=== PATIENT | male | born 1965 | race Caucasian/White ===

== ENCOUNTER → 2016-10-07 | Outpatient (CLI) | payer OTHER ==
--- NOTE | 2016-10-08 09:56 | ECHOF ---
Referral Reason:I42.9 cardiomyopathy in other dise MEASUREMENTS -------- HEIGHT: 177.8 cm WEIGHT: 73.9 kg BP: 182/92 RVIDd: 3.3 cm (< 3.3) IVSd: 1.3 cm (0.6 - 1.1) LVIDd: 5.2 cm (3.9 - 5.3) LVPWd: 1.3 cm (0.6 - 1.1) IVSs: 1.7 cm LVIDs: 3.7 cm LVPWs: 1.7 cm LA Diam: 3.5 cm (2.7 - 3.8) LAESV Index (A-L): 32.71 ml/m Ao Diam: 3.5 cm (2.0 - 3.7) MV EXCURSION: 17.701 mm (> 18.000) MV EF SLOPE: 35 mm/s (70 - 150) EPSS: 1.6 cm MV E Marco: 0.48 m/s MV DecT: 448 ms MV A Marco: 0.83 m/s MV E/A Ratio: 0.58 FINDINGS -------- Sinus rhythm. This was a technically adequate study. The left ventricular size is normal. There is mild concentric left ventricular hypertrophy. Overall left ventricular systolic function is mild-moderately impaired with, an EF between 40 - 45 %. The right ventricle is mildly enlarged. LA is moderately dilated 34-39 ml/m2 The right atrium is normal in size. The aortic valve is trileaflet and appears structurally normal. Mild mitral annular calcification present. Trace tricuspid regurgitation present. The pulmonic valve is normal. There is no pulmonic regurgitation present. The aortic root size is normal. Normal inferior vena cava with normal inspiratory collapse consistent with estimated right atrial pressure of 5 mmHg. There is no pericardial effusion. CONCLUSIONS -------- 1. Sinus rhythm. 2. Mild mitral annular calcification present. 3. Trace tricuspid regurgitation present. 4. The pulmonic valve is normal. 5. The aortic root size is normal. 6. Normal inferior vena cava with normal inspiratory collapse consistent with estimated right atrial pressure of 5 mmHg. 7. There is no pericardial effusion. 8. This was a technically adequate study. 9. The left ventricular size is normal. 10. There is mild concentric left ventricular hypertrophy. 11. Overall left ventricular systolic function is mild-moderately impaired with, an EF between 40 - 45 %. 12. The right ventricle is mildly enlarged. 13. LA is moderately dilated 34-39 ml/m2 14. The right atrium is normal in size. 15. The aortic valve is trileaflet and appears structurally normal. LYE BOILER: Kell Kc RDCS
== END | disposition home or self-care (01) ==
LOC: RADECHMAIN 12:54
PROVIDERS: ATTEND Internal Medicine Interventional Cardiology
DX: I51.7 Cardiomegaly (principal); I42.9 Cardiomyopathy, unspecified
CPT/HCPCS: 93306

== ENCOUNTER 2018-02-07 17:09 | Observation (INO) | payer OTHER ==
[2018-02-07 19:08] LABS: Basophils # (A) 0.1 k/uL (0-0.2); Basophils % (A) 1 %; Eosinophils # (A) 0.3 k/uL (0-0.7); Eosinophils % (A) 3 %; HCT 33.5 % (39.0-53.0); HGB 11.3 gm/dL (13.0-17.5); Lymphocytes # (A) 2.6 k/uL (1.0-4.8); Lymphocytes % (A) 22 %; MCH 31.1 pg (25.0-35.0); MCHC 33.8 g/dL (31.0-37.0); MCV 92.2 fL (80.0-100.0); Mean Platelet Volume 6.6; Monocytes # (A) 0.5 k/uL (0-1.0); Monocytes % (A) 4 %; Neutrophils # (A) 8.1 k/uL (1.3-7.7); Neutrophils % (A) 69 %; Platelet Count 518 k/uL (150-450); RBC 3.64 m/uL (4.30-5.90); RDW 14.4 % (11.5-15.5); WBC 11.8 k/uL (3.8-10.6)
[2018-02-07 19:21] LABS: Creatine Kinase 44 U/L (55-170)
[2018-02-07 19:31] LABS: Albumin 3.5 g/dL (3.5-5.0); Calcium 9.5 mg/dL (8.4-10.2); Potassium 4.6 mmol/L (3.5-5.1); Total Bilirubin 0.2 mg/dL (0.2-1.3); Total Protein 6.9 g/dL (6.3-8.2)
[2018-02-07 19:34] LABS: Creatine Kinase MB 0.6 ng/mL (0.0-2.4); Troponin I <0.012 ng/mL (0.000-0.034)
[2018-02-07 19:48] LABS: Prothrombin Time 75.7 sec (9.0-12.0)
[2018-02-07 19:58] LABS: INR 8.2 (<1.2)
--- NOTE | 2018-02-07 20:00 | ED ---
General Adult HPI - General Chief complaint: Chest Pain Stated complaint: Abdormal labs Time Seen by Provider: 02/07/18 18:50 Source: patient Mode of arrival: ambulatory Limitations: no limitations - History of Present Illness Initial comments: Seth Quezada is a 52-year-old male with past medical history listed below who presents to the emergency department today for evaluation of left- sided chest pain and shortness of breath. 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 Pain is worse with inspiration or coughing. Patient also states is been feeling mildly short of breath. Patient was admitted he is a cigarette smoker. The patient denies any fevers but states that he has felt chilled. The patient saw his primary care physician today and had routine labs drawn which revealed a INR of 8.2. She denies any bleeding, he has not had any bloody noses, bleeding with brushing his teeth, hematuria or medication. Patient reports that his goal INR is 2-3 and that he has been taking his warfarin as prescribed. - Related Data Home Medications Medication Instructions Recorded Confirmed Aspirin EC [Ecotrin Low Dose] 81 mg PO DAILY 02/07/18 02/07/18 Chlorthalidone [Hygroton] 25 mg PO DAILY 02/07/18 02/07/18 Diltiazem HCl 60 mg PO TID 02/07/18 02/07/18 Losartan Potassium 100 mg PO DAILY 02/07/18 02/07/18 Mometasone/Formoterol [Dulera 200 2 puff INHALATION RT-BID 02/07/18 02/07/18 Mcg/5 Mcg Inhaler] Pantoprazole Sodium [Protonix] 20 mg PO DAILY 02/07/18 02/07/18 Sotalol [Betapace] 80 mg PO BID 02/07/18 02/07/18 Warfarin [Coumadin] 3.5 mg PO HS 02/07/18 02/07/18 Previous Rx's Medication Instructions Recorded Albuterol Inhaler [Ventolin Hfa 1 - 2 puff INHALATION RT-Q6H PRN 07/18/16 Inhaler] #1 inhaler Allergies Allergy/AdvReac Type Severity Reaction Status Date / Time No Known Allergies Allergy Verified 02/07/18 19:19 Review of Systems ROS Statement: Those systems with pertinent positive or pertinent negative responses have been documented in the HPI. ROS Other: All systems not noted in ROS Statement are negative. Constitutional: Reports: chills. Denies: fever Eyes: Denies: eye pain ENT: Denies: throat pain Respiratory: Reports: cough Cardiovascular: Reports: chest pain Endocrine: Reports: fatigue Gastrointestinal: Denies: abdominal pain, nausea, vomiting Genitourinary: Denies: urgency Musculoskeletal: Reports: back pain Skin: Denies: rash Neurological: Denies: headache Psychiatric: Denies: anxiety Hematological/Lymphatic: Reports: easy bleeding, easy bruising Past Medical History Past Medical History: Atrial Fibrillation, Dialysis, Hypertension, Renal Disease Additional Past Medical History / Comment(s): recently released from [facility] after multi-organ failure and dialysis (not currently on dialysis.) History of Any Multi-Drug Resistant Organisms: None Reported Past Surgical History: No Surgical Hx Reported Additional Past Surgical History / Comment(s): catheter removal from neck jun Past Anesthesia/Blood Transfusion Reactions: No Reported Reaction Past Psychological History: No Psychological Hx Reported Smoking Status: Current every day smoker Past Alcohol Use History: Occasional Past Drug Use History: None Reported - Past Family History Father Family Medical History: Cancer Mother Family Medical History: Diabetes Mellitus General Exam Limitations: no limitations General appearance: alert, in no apparent distress Head exam: Present: atraumatic, normocephalic Eye exam: Present: normal appearance, PERRL ENT exam: Present: normal exam Neck exam: Present: normal inspection Respiratory exam: Present: normal lung sounds bilaterally. Absent: respiratory distress Cardiovascular Exam: Present: regular rate, normal rhythm GI/Abdominal exam: Present: soft. Absent: distended Rectal exam: Present: deferred Extremities exam: Present: normal inspection. Absent: full ROM Back exam: Present: normal inspection Neurological exam: Present: alert, oriented X3 Psychiatric exam: Present: normal affect, normal mood Skin exam: Present: warm, dry Course Vital Signs 02/07/18 18:08 Temperature 98.6 F Pulse Rate 84 Respiratory 18 Rate Blood Pressure 106/67 O2 Sat by Pulse 100 Oximetry Medical Decision Making - Medical Decision Making Patient was seen and evaluated, history was obtained from the patient and review of medical record The patient with a cardiac history, intermittent left-sided chest pain as well as subjective chills and cough - vital signs reveal no Sirs criteria Cardiac workup was ordered EKG reveals a normal sinus rhythm with a rate of 71, normal axis, normal intervals, there is noted be a right bundle branch block, there are no acute ST elevations or depressions. Labs reveal a normal troponin, There is leukocytosis, with neutrophilia, mild anemia, creatinine is 1.8 and INR is elevated at 8.2 - patient is not having any active bleeding - by mouth vitamin K was ordered and repeat morning labs were ordered EKG does reveal a right middle lobe pneumonia -patient with no recent admissions to the hospital, will treat for community-acquired pneumonia Patient is a 52-year-old male, history of coronary artery disease, intermittent left-sided chest pain for greater than 10 days duration, negative troponin. Patient also has a elevated INR 8.2 and a right middle lobe pneumonia. Uncertain of previous baseline kidney function by kidney function today is 1.8. I do feel the patient requires further monitoring I will place him in the observation unit for these multiple complaints. - Lab Data Result diagrams: 02/07/18 18:57 02/07/18 18:57 Lab Results 02/07/18 02/07/18 02/07/18 Range/Units 18:57 18:57 18:57 WBC 11.8 H (3.8-10.6) k/uL RBC 3.64 L (4.30-5.90) m/uL Hgb 11.3 L (13.0-17.5) gm/dL Hct 33.5 L (39.0-53.0) % MCV 92.2 (80.0-100.0) fL MCH 31.1 (25.0-35.0) pg MCHC 33.8 (31.0-37.0) g/dL RDW 14.4 (11.5-15.5) % Plt Count 518 H (150-450) k/uL Neutrophils % 69 % Lymphocytes % 22 % Monocytes % 4 % Eosinophils % 3 % Basophils % 1 % Neutrophils # 8.1 H (1.3-7.7) k/uL Lymphocytes # 2.6 (1.0-4.8) k/uL Monocytes # 0.5 (0-1.0) k/uL Eosinophils # 0.3 (0-0.7) k/uL Basophils # 0.1 (0-0.2) k/uL PT (9.0-12.0) sec INR (<1.2) APTT (22.0-30.0) sec Sodium 139 (137-145) mmol/L Potassium 4.6 (3.5-5.1) mmol/L Chloride 106 (98-107) mmol/L Carbon Dioxide 24 (22-30) mmol/L Anion Gap 9 mmol/L BUN 31 H (9-20) mg/dL Creatinine 1.80 H (0.66-1.25) mg/dL Est GFR (CKD-EPI)AfAm 49 (>60 ml/min/1.73 sqM) Est GFR (CKD-EPI)NonAf 42 (>60 ml/min/1.73 sqM) Glucose 95 (74-99) mg/dL Calcium 9.5 (8.4-10.2) mg/dL Total Bilirubin 0.2 (0.2-1.3) mg/dL AST 21 (17-59) U/L ALT 22 (21-72) U/L Alkaline Phosphatase 72 (38-126) U/L Total Creatine Kinase 44 L (55-170) U/L CK-MB (CK-2) 0.6 (0.0-2.4) ng/mL CK-MB (CK-2) Rel Index 1.4 Troponin I <0.012 (0.000-0.034) ng/mL Total Protein 6.9 (6.3-8.2) g/dL Albumin 3.5 (3.5-5.0) g/dL 02/07/18 Range/Units 18:57 WBC (3.8-10.6) k/uL RBC (4.30-5.90) m/uL Hgb (13.0-17.5) gm/dL Hct (39.0-53.0) % MCV (80.0-100.0) fL MCH (25.0-35.0) pg MCHC (31.0-37.0) g/dL RDW (11.5-15.5) % Plt Count (150-450) k/uL Neutrophils % % Lymphocytes % % Monocytes % % Eosinophils % % Basophils % % Neutrophils # (1.3-7.7) k/uL Lymphocytes # (1.0-4.8) k/uL Monocytes # (0-1.0) k/uL Eosinophils # (0-0.7) k/uL Basophils # (0-0.2) k/uL PT 75.7 H (9.0-12.0) sec INR 8.2 H* (<1.2) APTT 53.0 H (22.0-30.0) sec Sodium (137-145) mmol/L Potassium (3.5-5.1) mmol/L Chloride (98-107) mmol/L Carbon Dioxide (22-30) mmol/L Anion Gap mmol/L BUN (9-20) mg/dL Creatinine (0.66-1.25) mg/dL Est GFR (CKD-EPI)AfAm (>60 ml/min/1.73 sqM) Est GFR (CKD-EPI)NonAf (>60 ml/min/1.73 sqM) Glucose (74-99) mg/dL Calcium (8.4-10.2) mg/dL Total Bilirubin (0.2-1.3) mg/dL AST (17-59) U/L ALT (21-72) U/L Alkaline Phosphatase (38-126) U/L Total Creatine Kinase (55-170) U/L CK-MB (CK-2) (0.0-2.4) ng/mL CK-MB (CK-2) Rel Index Troponin I (0.000-0.034) ng/mL Total Protein (6.3-8.2) g/dL Albumin (3.5-5.0) g/dL Disposition Clinical Impression: Elevated INR (international normalized ratio), Chest pain, CAP (community acquired pneumonia) Disposition: ADMITTED IP TO THIS HOSP Condition: Good Is patient prescribed a controlled substance at d/c from ED?: No Referrals: Melvin Carter MD [Primary Care Provider] - 1-2 days Decision Time: 22:39
--- NOTE | 2018-02-07 20:09 | XR ---
EXAMINATION TYPE: XR chest 2V DATE OF EXAM: 02/07/2018 COMPARISON: 07/13/2016 HISTORY: Left side chest pain TECHNIQUE: Frontal and lateral views of the chest are obtained. FINDINGS: Heart and mediastinum are normal. There is some patchy infiltrate in the right middle lobe . There is old left-sided healed rib fracture. Costophrenic angles are clear. The bony thorax shows 2 5% anterior wedging of T7. IMPRESSION: Old compression fracture of T7. There is new right middle lobe pneumonia compared to old exam. No heart failure. Heart is smaller than old exam.
[2018-02-07] MEDS ORDERED: cefTRIAXone IN SWFI 1,000 MG/10 ML SYRINGE IVP STA (22:31)
[2018-02-07] MEDS ORDERED: AZITHROMYCIN 500 MG in DEXTROSE 5% IN WATER 250 ML IVPB STA ×2 (22:31)
[2018-02-07] MEDS ORDERED: MORPHINE SULFATE 4 MG/ML SYRINGE IVP STA (22:32)
[2018-02-07] MEDS ORDERED: NALOXONE 0.4 MG/ML 1 ML VIAL IV PRN (22:39)
[2018-02-07] MEDS ORDERED: ACETAMINOPHEN TAB 325 MG TAB PO PRN (22:39)
[2018-02-07] MEDS ORDERED: PHYTONADIONE ORAL 5 MG/5 ML ORAL.SYRG PO STA (22:40)
[2018-02-07] MEDS ORDERED: LIDOCAINE 5% PATCH TOPICAL SCH (22:45)
[2018-02-07] MEDS: SODIUM CHLORIDE 0.9% 1,000 ML IV SCH (22:53)
[2018-02-08 07:15] LABS: Basophils # (A) 0.1 k/uL (0-0.2); Basophils % (A) 1 %; Eosinophils # (A) 0.3 k/uL (0-0.7); Eosinophils % (A) 4 %; HCT 30.8 % (39.0-53.0); HGB 10.3 gm/dL (13.0-17.5); Lymphocytes # (A) 2.1 k/uL (1.0-4.8); Lymphocytes % (A) 23 %; MCH 31.9 pg (25.0-35.0); MCHC 33.5 g/dL (31.0-37.0); MCV 95.3 fL (80.0-100.0); Mean Platelet Volume 6.6; Monocytes # (A) 0.5 k/uL (0-1.0); Monocytes % (A) 6 %; Neutrophils # (A) 5.9 k/uL (1.3-7.7); Neutrophils % (A) 65 %; Platelet Count 444 k/uL (150-450); RBC 3.23 m/uL (4.30-5.90); RDW 14.6 % (11.5-15.5); WBC 9.1 k/uL (3.8-10.6)
[2018-02-08 07:23] LABS: INR 2.9 (<1.2); Prothrombin Time 25.8 sec (9.0-12.0)
[2018-02-08 07:50] LABS: Calcium 9.2 mg/dL (8.4-10.2); Potassium 4.8 mmol/L (3.5-5.1)
[2018-02-08] MEDS: SODIUM CHLORIDE 0.9% 1,000 ML IV SCH ×2 (08:41→18:06)
[2018-02-08] MEDS ORDERED: IPRATROPIUM-ALBUTEROL 3 ML NEB INHALATION PRN (08:41)
[2018-02-08] MEDS: SOTALOL 80 MG TAB PO SCH ×2 (08:54→21:29)
[2018-02-08] MEDS: DILTIAZEM ORAL 60 MG TAB PO SCH ×3 (08:54→21:28)
[2018-02-08] MEDS: MORPHINE SULFATE 4 MG/ML SYRINGE IVP PRN ×3 (10:55→20:18)
[2018-02-08] MEDS: cefTRIAXone IN SWFI 1,000 MG/10 ML SYRINGE IVP SCH (12:29)
[2018-02-08] MEDS: AZITHROMYCIN 500 MG TAB PO SCH (12:29)
[2018-02-08] MEDS: IPRATROPIUM-ALBUTEROL 3 ML NEB INHALATION SCH ×3 (13:12→20:24)
--- NOTE | 2018-02-08 17:00 | P.HPIM ---
History of Present Illness 52-year-old gentleman came in with complaints of pleuritic chest pain [facility] patient had left-sided pleuritic chest pain along with shortness of breath. Patient was comparing of cough with yellowish to be distress from reduction patient can use to smoke does have history of COPD. Does have history of atrial fibrillation appears to have history of DVT as well and the past patient is on Coumadin. Patient was sober therapy can Coumadin with the INR going up to around 8 without any acute bleed. Patient's INR has come down patient will be resumed on Coumadin tomorrow patient is on sotalol as well along with diltiazem, has previous ejection fraction is 40-45%. As diltiazem is not appropriate in heart failure his heart failure may have improved because of which I'm opting echo echocardiogram for now will continued diltiazem until I get the echocardiogram. Patient was also started on Rocephin and azithromycin for come in today quite pneumonia and patient had an incidental finding of compression fracture in one of the thoracic vertebrae which was chronic and old. Patient has significant pneumonic infiltrate in the right middle lobe. Review of Systems REVIEW OF SYSTEMS: CONSTITUTIONAL: No fever, no malaise, no fatigue. HEENT: No recent visual problems or hearing problems. Denied any sore throat. CARDIOVASCULAR: No orthopnea, PND, no palpitations, no syncope. PULMONARY: No shortness of breath, no cough, no hemoptysis. GASTROINTESTINAL: No diarrhea, no nausea, no vomiting, no abdominal pain. Normoactive bowel sounds. NEUROLOGICAL: No headaches, no weakness, no numbness. HEMATOLOGICAL: Denies any bleeding or petechiae. GENITOURINARY: Denies any burning micturition, frequency, or urgency. MUSCULOSKELETAL/RHEUMATOLOGICAL: Denies any joint pain, swelling, or any muscle pain. ENDOCRINE: Denies any polyuria or polydipsia. The rest of the 14-point review of systems is negative. Past Medical History Past Medical History: Atrial Fibrillation, Heart Failure, COPD, Dialysis, Deep Vein Thrombosis (DVT), Hypertension, Pneumonia, Renal Disease Additional Past Medical History / Comment(s): 2016 Pt was hospitalized for a lengthy time with multi organ failure/on life support/renal failure with hemodialysis/pt states he was never told cause of multi organ failure, past septic shock which pt states occured after multi organ failure, pneumonias. History of Any Multi-Drug Resistant Organisms: None Reported Past Surgical History: No Surgical Hx Reported Additional Past Surgical History / Comment(s): Hemodialysis catheter in neck- removed. Past Anesthesia/Blood Transfusion Reactions: No Reported Reaction Additional Past Anesthesia/Blood Transfusion Reaction / Comment(s): Pt states he has never had general anesthesia. Pt states he has never recieved blood. Smoking Status: Current every day smoker - Past Family History Father Family Medical History: Cancer Additional Family Medical History / Comment(s): Father of lung cancer at the age of 67yrs. Mother Family Medical History: Diabetes Mellitus Additional Family Medical History / Comment(s): Mother at the age of 74 yrs from "body wore out early." Medications and Allergies Home Medications Medication Instructions Recorded Confirmed Type Albuterol Inhaler [Ventolin Hfa 1 - 2 puff INHALATION RT-Q6H PRN 07/18/16 Rx Inhaler] #1 inhaler Aspirin EC [Ecotrin Low Dose] 81 mg PO DAILY 02/07/18 02/07/18 History Chlorthalidone [Hygroton] 25 mg PO DAILY 02/07/18 02/07/18 History Diltiazem HCl 60 mg PO TID 02/07/18 02/07/18 History Losartan Potassium 100 mg PO DAILY 02/07/18 02/07/18 History Mometasone/Formoterol [Dulera 200 2 puff INHALATION RT-BID 02/07/18 02/07/18 History Mcg/5 Mcg Inhaler] Pantoprazole Sodium [Protonix] 20 mg PO DAILY 02/07/18 02/07/18 History Sotalol [Betapace] 80 mg PO BID 02/07/18 02/07/18 History Warfarin [Coumadin] 3.5 mg PO HS 02/07/18 02/07/18 History Allergies Allergy/AdvReac Type Severity Reaction Status Date / Time No Known Allergies Allergy Verified 02/07/18 19:19 Physical Exam Vitals: Vital Signs Temp Pulse Pulse Resp BP BP Pulse Ox 02/08/18 16:36 80 02/08/18 15:00 97.0 F L 77 16 103/66 100 02/08/18 13:18 82 16 02/08/18 13:12 74 14 02/08/18 12:53 99.6 F 73 18 111/67 96 02/08/18 10:45 97.5 F L 74 18 115/53 97 02/08/18 06:43 76 16 116/58 98 02/08/18 06:00 64 17 103/61 94 L 02/08/18 05:00 64 16 98/57 96 02/08/18 04:00 76 17 107/67 96 02/08/18 03:00 58 L 16 105/67 98 02/08/18 02:00 60 17 98/58 97 02/08/18 01:00 64 16 96/55 97 02/08/18 00:00 70 17 93/55 96 02/07/18 23:09 53 L 17 149/64 100 02/07/18 18:08 98.6 F 84 18 106/67 100 PHYSICAL EXAMINATION: GENERAL: The patient is alert and oriented x3, not in any acute distress. Well developed, well nourished. HEENT: Pupils are round and equally reacting to light. EOMI. No scleral icterus. No conjunctival pallor. Normocephalic, atraumatic. No pharyngeal erythema. No thyromegaly. CARDIOVASCULAR: S1 and S2 present. No murmurs, rubs, or gallops. PULMONARY: Bilateral rhonchus breath sounds no wheezing was appreciated ABDOMEN: Soft, nontender, nondistended, normoactive bowel sounds. No palpable organomegaly. MUSCULOSKELETAL: No joint swelling or deformity. EXTREMITIES: No cyanosis, clubbing, or pedal edema. NEUROLOGICAL: Gross neurological examination did not reveal any focal deficits. SKIN: No rashes. Results CBC & Chem 7: 02/08/18 06:47 02/08/18 06:47 Labs: Abnormal Lab Results - Last 24 Hours (Table) 02/07/18 02/07/18 02/07/18 Range/Units 18:57 18:57 18:57 WBC 11.8 H (3.8-10.6) k/uL RBC 3.64 L (4.30-5.90) m/uL Hgb 11.3 L (13.0-17.5) gm/dL Hct 33.5 L (39.0-53.0) % Plt Count 518 H (150-450) k/uL Neutrophils # 8.1 H (1.3-7.7) k/uL PT (9.0-12.0) sec INR (<1.2) APTT (22.0-30.0) sec Chloride (98-107) mmol/L BUN 31 H (9-20) mg/dL Creatinine 1.80 H (0.66-1.25) mg/dL Glucose (74-99) mg/dL Total Creatine Kinase 44 L (55-170) U/L 02/07/18 02/08/18 02/08/18 Range/Units 18:57 06:47 06:47 WBC (3.8-10.6) k/uL RBC 3.23 L (4.30-5.90) m/uL Hgb 10.3 L (13.0-17.5) gm/dL Hct 30.8 L (39.0-53.0) % Plt Count (150-450) k/uL Neutrophils # (1.3-7.7) k/uL PT 75.7 H 25.8 H (9.0-12.0) sec INR 8.2 H* 2.9 H (<1.2) APTT 53.0 H (22.0-30.0) sec Chloride (98-107) mmol/L BUN (9-20) mg/dL Creatinine (0.66-1.25) mg/dL Glucose (74-99) mg/dL Total Creatine Kinase (55-170) U/L 02/08/18 Range/Units 06:47 WBC (3.8-10.6) k/uL RBC (4.30-5.90) m/uL Hgb (13.0-17.5) gm/dL Hct (39.0-53.0) % Plt Count (150-450) k/uL Neutrophils # (1.3-7.7) k/uL PT (9.0-12.0) sec INR (<1.2) APTT (22.0-30.0) sec Chloride 108 H (98-107) mmol/L BUN 29 H (9-20) mg/dL Creatinine 1.70 H (0.66-1.25) mg/dL Glucose 102 H (74-99) mg/dL Total Creatine Kinase (55-170) U/L Thrombosis Risk Factor Assmnt - Choose All That Apply Any of the Below Risk Factors Present?: Yes Each Factor Represents 1 point: Abnormal pulmonary function (COPD), Age 41-60 years, Serious lung disease incl. pneumonia (< 1month) Other Risk Factors: No Other congenital or acquired thrombophilia - If yes, enter type in comment: No Thrombosis Risk Factor Assessment Total Risk Factor Score: 3 Thrombosis Risk Factor Assessment Level: Moderate Risk Assessment and Plan Plan: -Possible community-acquired pneumonia mostly pneumococcal pneumonia patient is on Rocephin and azithromycin which will be continued. We will obtain sputum culture and blood cultures. -History of atrial fibrillation presently rate controlled hold off Coumadin today as well because of his suprapubic cannot yesterday continue his sotalol and Cardizem repeat echocardiogram to assess the ejection fraction which may be normal now. -Previous history of chronic systolic dysfunction patient is euvolemic at this point of time will discontinue IV fluids after a liter of fluid. -Acute renal failure prerenal azotemia mostly from sepsis, his previous creatinine was 1.1 patient may have a chronic kidney disease stage II from hypertensive nephrosclerosis continue with IV fluids for now discontinue after liters repeat basic metabolic profile tomorrow -Supratherapeutic INR presently improved and is 2.9. -History of subclavian DVT in the past my suspicion is low for PE in spite of pleuritic chest pain as patient came in with actually suprapubic INR patient may have pleurisy along with the right middle lobe pneumonia which is contributing to bilateral pleuritic chest pain
[2018-02-08] MEDS ORDERED: WARFARIN 2 MG TAB PO SCH (18:00)
[2018-02-08] MEDS: SYMBICORT 160-4.5 MCG INHALER INHALATION SCH (20:24)
[2018-02-08] MEDS ORDERED: LIDOCAINE 5% PATCH TOPICAL SCH (21:00)
[2018-02-09] MEDS ORDERED: MORPHINE SULFATE 4 MG/ML SYRINGE ONE (00:30)
[2018-02-09] MEDS: SYMBICORT 160-4.5 MCG INHALER INHALATION SCH (07:21)
[2018-02-09] MEDS: IPRATROPIUM-ALBUTEROL 3 ML NEB INHALATION SCH ×3 (07:21→15:47)
[2018-02-09] MEDS: cefTRIAXone IN SWFI 1,000 MG/10 ML SYRINGE IVP SCH (08:56)
[2018-02-09] MEDS: DILTIAZEM ORAL 60 MG TAB PO SCH (08:57)
[2018-02-09] MEDS: SOTALOL 80 MG TAB PO SCH (08:57)
[2018-02-09] MEDS: AZITHROMYCIN 500 MG TAB PO SCH (08:57)
[2018-02-09] MEDS: MORPHINE SULFATE 4 MG/ML SYRINGE IVP PRN ×2 (08:57→13:19)
[2018-02-09 09:24] LABS: Basophils # (A) 0.1 k/uL (0-0.2); Basophils % (A) 1 %; Eosinophils # (A) 0.2 k/uL (0-0.7); Eosinophils % (A) 3 %; HCT 32.4 % (39.0-53.0); HGB 10.5 gm/dL (13.0-17.5); Lymphocytes # (A) 1.5 k/uL (1.0-4.8); Lymphocytes % (A) 19 %; MCH 30.9 pg (25.0-35.0); MCHC 32.3 g/dL (31.0-37.0); MCV 95.8 fL (80.0-100.0); Mean Platelet Volume 6.8; Monocytes # (A) 0.4 k/uL (0-1.0); Monocytes % (A) 5 %; Neutrophils # (A) 5.7 k/uL (1.3-7.7); Neutrophils % (A) 71 %; Platelet Count 433 k/uL (150-450); RBC 3.38 m/uL (4.30-5.90); RDW 14.3 % (11.5-15.5); WBC 8.1 k/uL (3.8-10.6)
[2018-02-09 09:25] LABS: INR 1.2 (<1.2); Prothrombin Time 11.2 sec (9.0-12.0)
[2018-02-09 09:55] LABS: Calcium 9.3 mg/dL (8.4-10.2)
--- NOTE | 2018-02-09 11:47 | ECHOF ---
Referral Reason:h/o CHF MEASUREMENTS -------- HEIGHT: 177.8 cm WEIGHT: 74.8 kg BP: 107/69 IVSd: 1.1 cm (0.6 - 1.1) LVIDd: 4.7 cm (3.9 - 5.3) LVPWd: 1.1 cm (0.6 - 1.1) IVSs: 1.4 cm LVIDs: 2.9 cm LVPWs: 1.4 cm LAESV Index (A-L): 30.85 ml/m MV E Marco: 0.88 m/s MV DecT: 278 ms MV A Marco: 0.60 m/s MV E/A Ratio: 1.46 RAP: 5.00 mmHg RVSP: 37.63 mmHg FINDINGS -------- Sinus rhythm. This was a technically adequate study. The left ventricular size is normal. There is borderline concentric left ventricular hypertrophy. Overall left ventricular systolic function is normal with, an EF between 55 - 60 %. The right ventricle is normal in size and function. LA is midly dilated 29-33ml/m2. The right atrium is normal in size. Aortic valve is trileaflet and is mildly thickened. There is no evidence of aortic regurgitation. There is no evidence of aortic stenosis. The mitral valve leaflets are mildly thickened. There is trace to mild mitral regurgitation. Trace tricuspid regurgitation present. There is borderline pulmonary hypertension. The right vent ricular systolic pressure, as measured by Doppler, is 37.63mmHg. The pulmonic valve was not well visualized. The aortic root size is normal. Normal inferior vena cava with normal inspiratory collapse consistent with estimated right atrial pre ssure of 5 mmHg. There is no pericardial effusion. CONCLUSIONS -------- 1. Sinus rhythm. 2. This was a technically adequate study. 3. The left ventricular size is normal. 4. There is borderline concentric left ventricular hypertrophy. 5. Overall left ventricular systolic function is normal with, an EF between 55 - 60 %. 6. LA is midly dilated 29-33ml/m2. 7. Aortic valve is trileaflet and is mildly thickened. 8. The mitral valve leaflets are mildly thickened. 9. There is trace to mild mitral regurgitation. 10. Trace tricuspid regurgitation present. 11. There is borderline pulmonary hypertension. 12. The right ventricular systolic pressure, as measured by Doppler, is 37.63mmHg. 13. The pulmonic valve was not well visualized. 14. The aortic root size is normal. 15. There is no pericardial effusion. RECORD TESTER: Elbert Sheikh RDCS
[2018-02-09 15:42] VITALS: BP 114/65; PULSE 64; RESP 16; TEMP 97.8
--- NOTE | 2018-02-09 17:33 | P.DS ---
Providers Date of admission: 02/07/18 22:40 Expected date of discharge: 02/09/18 Attending physician: Garth Ramos Primary care physician: Melvin Carter Hospital Course: Final Diagnoses: -Possible community-acquired pneumonia mostly pneumococcal pneumonia, maintained on Rocephin and azithromycin. sputum and blood cultures pending. -History of atrial fibrillation presently rate controlled, Coumadin initially placed secondary to coagulopathy, INR 8.2 on admission. -Previous history of chronic systolic dysfunction patient is euvolemic -Acute renal failure prerenal azotemia mostly from sepsis, his previous creatinine was 1.1 patient may have a chronic kidney disease stage II from hypertensive nephrosclerosis -Supratherapeutic INR presently improved and is 2.9. 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 Patient was comparing of cough with yellowish to be distress from reduction patient can use to smoke does have history of COPD. Does have history of atrial fibrillation appears to have history of DVT as well and the past patient is on Coumadin. Patient was sober therapy can Coumadin with the INR going up to around 8 without any acute bleed. Patient's INR has come down patient will be resumed on Coumadin tomorrow patient is on sotalol as well along with diltiazem, has previous ejection fraction is 40-45%. As diltiazem is not appropriate in heart failure his heart failure may have improved because of which I'm opting echo echocardiogram for now will continued diltiazem until I get the echocardiogram. Patient was also started on Rocephin and azithromycin for come in today quite pneumonia and patient had an incidental finding of compression fracture in one of the thoracic vertebrae which was chronic and old. Patient has significant pneumonic infiltrate in the right middle lobe. Significant clinical improvement. Creatinine down to 1.32, INR 1.2. Denies lightheadedness, dizziness or focal deficits. Echo reporting normal LV function , EF between 55 and 60%. Denies chest pain, palpitations or increased shortness of breath. Patient is being discharged home in a stable condition with guarded prognosis. EXAMINATION: GENERAL: The patient is alert and oriented x3, not in any acute distress. Well developed, well nourished. CARDIOVASCULAR: S1 and S2 present. No murmurs, rubs, or gallops. PULMONARY: Bilateral rhonchus breath sounds no wheezing was appreciated ABDOMEN: Soft, nontender, nondistended, normoactive bowel sounds. No palpable organomegaly. NEUROLOGICAL: Gross neurological examination did not reveal any focal deficits. Microbiology 02/09/18 11:45 Sputum Sputum Culture - Preliminary The impression and plan of care has been dictated as directed. : I performed a history and examination of this patient, discussed the same with the dictator. I agree with the dictator's note ,documented as a scribe. Any additional findings or plans will be noted. Time taken: 35 minutes Patient Condition at Discharge: Stable Plan - Discharge Summary Discharge Rx Participant: No New Discharge Prescriptions: New Cefuroxime Axetil [Ceftin] 500 mg PO BID #10 tab Warfarin [Coumadin] 2 mg PO DAILY@1800 #7 tab traMADol HCl [Ultram] 50 mg PO QID PRN 3 Days #12 tab PRN Reason: Pain Continue Albuterol Inhaler [Ventolin Hfa Inhaler] 1 - 2 puff INHALATION RT-Q6H PRN #1 inhaler PRN Reason: Shortness Of Breath Sotalol [Betapace] 80 mg PO BID Pantoprazole Sodium [Protonix] 20 mg PO DAILY Mometasone/Formoterol [Dulera 200 Mcg/5 Mcg Inhaler] 2 puff INHALATION RT-BID Diltiazem HCl 60 mg PO TID Aspirin EC [Ecotrin Low Dose] 81 mg PO DAILY Discontinued Chlorthalidone [Hygroton] 25 mg PO DAILY Warfarin [Coumadin] 3.5 mg PO HS Discharge Medication List Albuterol Inhaler [Ventolin Hfa Inhaler] 1 - 2 puff INHALATION RT-Q6H PRN #1 inhaler 07/18/16 [Rx] Aspirin EC [Ecotrin Low Dose] 81 mg PO DAILY 02/07/18 [History] Diltiazem HCl 60 mg PO TID 02/07/18 [History] Mometasone/Formoterol [Dulera 200 Mcg/5 Mcg Inhaler] 2 puff INHALATION RT-BID [History] Pantoprazole Sodium [Protonix] 20 mg PO DAILY 02/07/18 [History] Sotalol [Betapace] 80 mg PO BID 02/07/18 [History] Cefuroxime Axetil [Ceftin] 500 mg PO BID #10 tab 02/09/18 [Rx] Warfarin [Coumadin] 2 mg PO DAILY@1800 #7 tab 02/09/18 [Rx] traMADol HCl [Ultram] 50 mg PO QID PRN 3 Days #12 tab 02/09/18 [Rx] Follow up Appointment(s)/Referral(s): Melvin Carter MD [Primary Care Provider] - 02/11/18 10:00 am Ambulatory/Diagnostic Orders: Complete Blood Count w/diff [LAB.AMB] Time Frame: 02/11/18, Location: None Selected Patient Instructions/Handouts: Community Acquired Pneumonia (DC) Activity/Diet/Wound Care/Special Instructions: Patient admitted to hospital with pneumonia on February 07, 2018. Can return to work on Monday February 12, 2018. Discharge Disposition: HOME SELF-CARE
[2018-02-09] MEDS ORDERED: WARFARIN 2 MG TAB PO SCH (18:00)
== END 2018-02-09 16:25 | disposition home or self-care (01) ==
LOC: EC 17:09 → 4MS4W 22:40
PROVIDERS: ADMIT Hospitalist; ATTEND Hospitalist
DX: J18.9 Pneumonia, unspecified organism (principal); N17.9 Acute kidney failure, unspecified; J44.0 Chronic obstructive pulmonary disease with (acute) lower respiratory infection; I13.0 Hypertensive heart and chronic kidney disease with heart failure and stage 1 through stage 4 chronic kidney disease, or unspecified chronic kidney disease; N18.9 Chronic kidney disease, unspecified; I50.22 Chronic systolic (congestive) heart failure; I25.10 Atherosclerotic heart disease of native coronary artery without angina pectoris; F17.210 Nicotine dependence, cigarettes, uncomplicated; I48.91 Unspecified atrial fibrillation; R79.1 Abnormal coagulation profile; Z79.01 Long term (current) use of anticoagulants; Z79.82 Long term (current) use of aspirin; Z79.51 Long term (current) use of inhaled steroids; Z79.899 Other long term (current) drug therapy; Z86.718 Personal history of other venous thrombosis and embolism; Z87.81 Personal history of (healed) traumatic fracture; Z80.1 Family history of malignant neoplasm of trachea, bronchus and lung; Z83.3 Family history of diabetes mellitus
CPT/HCPCS: 99285 ×2; 96365 ×2; 96366 ×4; 96375 ×3; 96376 ×4; 36415; 94640 ×4; 93005; 93306; 83880; 80053; 80048 ×2; 82550; 82553; 84484; 85025 ×3; 85610 ×3; 85730; 87070; 87205; 87077; 87186; 71046; G0378 ×3; J2270 ×3; J0456; J0696 ×3

== ENCOUNTER → 2018-02-11 | Outpatient (CLI) | payer OTHER ==
[2018-02-11 11:45] LABS: Basophils # (A) 0.1 k/uL (0-0.2); Basophils % (A) 2 %; Eosinophils # (A) 0.3 k/uL (0-0.7); Eosinophils % (A) 3 %; HCT 34.2 % (39.0-53.0); HGB 11.3 gm/dL (13.0-17.5); Lymphocytes # (A) 2.2 k/uL (1.0-4.8); Lymphocytes % (A) 25 %; MCH 31.4 pg (25.0-35.0); MCHC 33.1 g/dL (31.0-37.0); MCV 94.8 fL (80.0-100.0); Mean Platelet Volume 6.5; Monocytes # (A) 0.7 k/uL (0-1.0); Monocytes % (A) 8 %; Neutrophils # (A) 5.2 k/uL (1.3-7.7); Neutrophils % (A) 60 %; Platelet Count 522 k/uL (150-450); RDW 14.5 % (11.5-15.5); WBC 8.7 k/uL (3.8-10.6)
[2018-02-11 11:50] LABS: Calcium 9.6 mg/dL (8.4-10.2); Potassium 5.4 mmol/L (3.5-5.1)
[2018-02-11 12:17] LABS: INR 1.3 (<1.2); Prothrombin Time 12.5 sec (9.0-12.0)
== END | disposition home or self-care (01) ==
LOC: LABWHC1 11:04
PROVIDERS: ATTEND Nurse Practitioner
DX: J18.9 Pneumonia, unspecified organism (principal); N19 Unspecified kidney failure; Z79.01 Long term (current) use of anticoagulants; Z51.81 Encounter for therapeutic drug level monitoring
CPT/HCPCS: 36415; 80048; 85025; 85610

== ENCOUNTER → 2018-02-23 | Outpatient (CLI) | payer OTHER ==
[2018-02-23 09:52] LABS: INR 1.4 (<1.2)
== END | disposition home or self-care (01) ==
LOC: LABWHC1 08:52
PROVIDERS: ATTEND Family Medicine
DX: I48.91 Unspecified atrial fibrillation (principal)
CPT/HCPCS: 36415; 85610

== ENCOUNTER → 2018-03-03 | Outpatient (CLI) | payer OTHER ==
--- NOTE | 2018-03-03 18:47 | CT ---
EXAMINATION TYPE: CT thoracic spine wo con DATE OF EXAM: 03/03/2018 COMPARISON: None HISTORY: 542.6 CT DLP: Compression fracture of T3. mGycm Automated exposure control for dose reduction was used. FINDINGS: There is a mild thoracic kyphotic curvature. There is 25% anterior wedging of T7 vertebra that appear s to be an acute compression fracture. There is cortical buckling anteriorly. There is step deformity in the superior cortex of T7 vertebral body. There is anterior wedging of T5 vertebra with smooth margins consistent with an old fracture. There i s anterior spurring in the thoracic spine and upper lumbar spine. There is no paraspinal mass. The po sterior elements are intact. I see no focal bone destruction. IMPRESSION: ACUTE OSTEOPOROTIC TYPE COMPRESSION FRACTURE OF T7. OLD OSTEOPOROTIC TYPE COMPRESSION FRACTURE OF T5. No change compared to the thoracic spine x-ray of 02/22/2018.
== END | disposition home or self-care (01) ==
LOC: RADCTMAIN 18:10
PROVIDERS: ATTEND Emergency Medicine
DX: M80.88XA Other osteoporosis with current pathological fracture, vertebra(e), initial encounter for fracture (principal)
CPT/HCPCS: 72128